=== PATIENT | female | born 1990 | race American Indian/Alaskan Native ===

== ENCOUNTER 2018-05-06 19:28 | Emergency (ER) | payer SELFPAY ==
--- NOTE | 2018-05-06 20:30 | Emergency Department Report ---
- General Chief complaint: Skin/Abscess/Foreign Body Stated complaint: FB RT AND LT EAR Time Seen by Provider: 05/06/18 20:29 Source: patient, family Mode of arrival: Ambulatory Limitations: No Limitations - History of Present Illness Initial comments: This is a 27-year-old female here report that she thinks that she has the back of her earrings stuck in her ears. She said she is not sure if they fell out or the one in her ear canal. She denies any pain. Denies any fever or chills. Denies any change in her hearing. Denies any drainage from her ears. complaint: foreign body Onset/Timin -: days(s) Tetanus Up to Date: yes Location: head (bilateral ear canal) Severity: severe (reports pain to both ears. On triage note it says had but patient said it is or ears.) Severity scale (0 -10): 7 Quality: aching Consistency: intermittent Worsens with: none Context: none Associated symptoms: denies other symptoms Treatments Prior to Arrival: none - Related Data Home Medications Medication Instructions Recorded Confirmed Last Taken ALBUTEROL Inhaler (OR & NICU) 1 puff PRN 08/09/13 08/10/13 Unknown [ProAir HFA Inhaler] Previous Rx's Medication Instructions Recorded Last Taken Type Ferrous Sulfate [Feosol 325 MG tab] 325 mg PO BID #60 tablet 08/10/13 Unknown Rx Norgestimate-Ethinyl Estradiol 1 each PO QDAY #30 tablet 08/10/13 Unknown Rx [Ortho Tri-Cyclen Lo] Allergies Allergy/AdvReac Type Severity Reaction Status Date / Time No Known Allergies Allergy Verified 08/09/13 23:57 Abscess Boil HPI - HPI Chief Complaint: Skin/Abscess/Foreign Body Stated Complaint: FB RT AND LT EAR Time Seen by Provider: 05/06/18 20:29 Home Medications: Home Medications Medication Instructions Recorded Confirmed Last Taken ALBUTEROL Inhaler (OR & NICU) 1 puff PRN 08/09/13 08/10/13 Unknown [ProAir HFA Inhaler] Previous Rx's Medication Instructions Recorded Last Taken Type Ferrous Sulfate [Feosol 325 MG tab] 325 mg PO BID #60 tablet 08/10/13 Unknown Rx Norgestimate-Ethinyl Estradiol 1 each PO QDAY #30 tablet 01/01/14 Unknown Rx [Ortho Tri-Cyclen Lo] Allergies/Adverse Reactions: Allergies Allergy/AdvReac Type Severity Reaction Status Date / Time No Known Allergies Allergy Verified 08/09/13 23:57 ED Review of Systems ROS: Stated complaint: FB RT AND LT EAR Other details as noted in HPI Constitutional: denies: chills, fever Eyes: denies: eye pain, eye discharge, vision change ENT: ear pain, other (report foreign body in ears.). denies: throat pain, hearing loss, epistaxis, congestion Respiratory: denies: cough, shortness of breath, wheezing Cardiovascular: denies: chest pain, palpitations Endocrine: no symptoms reported Musculoskeletal: denies: back pain, arthralgia Skin: denies: rash, lesions Neurological: denies: headache, paresthesias ED Past Medical Hx - Past Medical History Previous Medical History?: Yes Hx Diabetes: No Hx Asthma: Yes Hx COPD: No Additional medical history: bronchitis, anemia - Surgical History Past Surgical History?: Yes Additional Surgical History: cyst removal from back of leg - Family History Family history: hypertension - Social History Smoking Status: Never Smoker Substance Use Type: Alcohol - Medications Home Medications: Home Medications Medication Instructions Recorded Confirmed Last Taken Type ALBUTEROL Inhaler (OR & NICU) 1 puff PRN 08/09/13 08/10/13 Unknown History [ProAir HFA Inhaler] Ferrous Sulfate [Feosol 325 MG tab] 325 mg PO BID #60 tablet 08/10/13 Unknown Rx Norgestimate-Ethinyl Estradiol 1 each PO QDAY #30 tablet 08/10/13 Unknown Rx [Ortho Tri-Cyclen Lo] ED Physical Exam - General Limitations: No Limitations General appearance: alert, in no apparent distress - Head Head exam: Present: atraumatic, normocephalic, normal inspection, other (normal exam) - Eye Eye exam: Present: normal appearance, PERRL, EOMI - ENT ENT exam: Present: normal exam, normal orophraynx, mucous membranes moist, TM's normal bilaterally, normal external ear exam - Expanded ENT Exam Expanded Ear exam: Present: normal external inspection, other (bilateral TM pearly calvert and bilateral EAC normal without any foreign body. Bilateral mastoid bone nontender to palpate) Mouth exam: Present: normal external inspection Throat exam: Positive: normal inspection - Neck Neck exam: Present: normal inspection, full ROM. Absent: tenderness - Respiratory Respiratory exam: Present: normal lung sounds bilaterally. Absent: respiratory distress - Cardiovascular Cardiovascular Exam: Present: regular rate, normal rhythm, normal heart sounds - Extremities Exam Extremities exam: Present: normal inspection, full ROM, normal capillary refill , other (ambulates without any difficulties). Absent: tenderness - Neurological Exam Neurological exam: Present: alert, oriented X3, normal gait - Psychiatric Psychiatric exam: Present: normal affect, normal mood - Skin Skin exam: Present: warm, dry, intact, normal color. Absent: rash ED Course Vital Signs 05/06/18 19:57 Temperature 99.0 F Pulse Rate 65 Respiratory 17 Rate Blood Pressure 115/69 O2 Sat by Pulse 99 Oximetry - Reevaluation(s) Reevaluation #1: 05/06/18 21:13 Patient stable throughout ED course. See procedure note for details - Foreign Body Removal Ear If Insect Suspected: ear canal inspected-intac Foreign Body Removed: no (no foreign body seen) Tympanic Membrane Intact: Yes Patient Tolerated Procedure: well, no complications Complications: none Additional Comments: She had reported foreign body in both ears. She thought the back of her earrings that she has in her tract is at fell and went in her ear canal. Upon examination, no foreign body seen. ED Medical Decision Making - Medical Decision Making This is a 27-year-old female here report that the back of her earring might be inner ear canal. She has bilateral tried this pierced and she states that she cannot find the back of the earrings. She is here to be evaluated Procedure: Procedure note for details 1: Suspect foreign body in both ear canals-no foreign body visualized with the otoscope . Bilateral ear canal with normal exam and bilateral TM normal exam. I discussed with the patient and she agreed that they bite of fell out. She said that she was just worried that they might of been inner ear canal. Patient discharged home in stable condition vital signs are stable she is afebrile to follow up at [facility] if she does not have a primary care doctor in 2-3 days. Her ear pain has resolved. Critical care attestation.: If time is entered above; I have spent that time in minutes in the direct care of this critically ill patient, excluding procedure time. ED Disposition Clinical Impression: Foreign body sensation in both ear canals Disposition: [id number] TO HOME OR SELFCARE Is pt being admited?: No Does the pt Need Aspirin: No Condition: Stable Instructions: Earache (ED) Additional Instructions: Please follow up with primary care doctor in 2-3 days. Referrals: PRIMARY CARE,MD [Primary Care Provider] - 2-3 Days [facility] [Outside] - 2-3 Days Forms: Work/School Release Form(ED)
[2018-05-07 05:04] VITALS: BP 130/81
== END 2018-05-07 01:35 | disposition home or self-care (01) ==
LOC: ED 19:28
DX: Z03.89 Encounter for observation for other suspected diseases and conditions ruled out (principal); J45.909 Unspecified asthma, uncomplicated
CPT/HCPCS: 99282